=== PATIENT | female | born 1995 | race Caucasian/White ===

== ENCOUNTER 2017-08-30 20:53 | Emergency (ER) | payer BC ==
[2017-08-30 21:14] VITALS: BP 147/85
--- NOTE | 2017-08-30 22:31 | ED ---
Laceration/Wound HPI - HPI Summary HPI Summary: 22F presents with right index finger avulsion. She cut her finger on a razor. The bleeding has slowed to a trickle at this time. no numbness or tingling. is right handed. tetanus is up to date. no other injury. 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 Time Seen by Provider: 08/30/17 21:23 Pain Intensity: 3 - Allergy/Home Medications Allergies/Adverse Reactions: Allergies Allergy/AdvReac Type Severity Reaction Status Date / Time No Known Allergies Allergy Verified 08/30/17 21:14 PMH/Surg Hx/FS Hx/Imm Hx Endocrine/Hematology History: Denies: Hx Anticoagulant Therapy Cardiovascular History: Denies: Hx Hypertension - Immunization History Date of Tetanus Vaccine: last 5 years Infectious Disease History: No Infectious Disease History: Denies: Traveled Outside the [place] in Last 30 Days - Family History Known Family History: Negative: Diabetes - Social History Alcohol Use: Rare Substance Use Type: Reports: None Smoking Status (MU): Never Smoked Tobacco Review of Systems Negative: Fever Negative: Chest Pain Negative: Shortness Of Breath Positive: Other - avulsion right index finger All Other Systems Reviewed And Are Negative: Yes Physical Exam Triage Information Reviewed: Yes Vital Signs On Initial Exam: Initial Vitals Temp Pulse Resp BP Pulse Ox 98.3 F 91 18 147/85 97 08/30/17 21:11 08/30/17 21:11 08/30/17 21:11 08/30/17 21:11 08/30/17 21:11 Vital Signs Reviewed: Yes Appearance: Positive: Well-Appearing Skin: Positive: Warm, Dry, Other - 1/2cm and 1/4cm avulsion or distal tip of right index finger Head/Face: Positive: Normal Head/Face Inspection Eyes: Positive: Normal, EOMI, Conjunctiva Clear Respiratory/Lung Sounds: Positive: Clear to Auscultation, Breath Sounds Present Cardiovascular: Positive: Normal, RRR Musculoskeletal: Positive: Strength/ROM Intact - right hand, Other - capillary refill<2 secs, Neurological: Positive: Normal Psychiatric: Positive: Normal - Nora Coma Scale Coma Scale Total: 15 Diagnostics - Vital Signs Vital Signs Temp Pulse Resp BP Pulse Ox 08/30/17 21:11 98.3 F 91 18 147/85 97 - Laboratory Lab Statement: Any lab studies that have been ordered have been reviewed, and results considered in the medical decision making process. Laceration Repair Course/Dx - Course Course Of Treatment: 22F presents with right index finger avulsion. She cut her finger on a razor. The bleeding has slowed to a trickle at this time. no numbness or tingling. is right handed. tetanus is up to date. no other injury. on exam has 1/2cm by 1/4cm avulsion. cleaned area and placed xeroform, guaze, and coband to create a pressure dressing. told to change pressure dressing tomorrow. patient understand and agrees with plan. - Differential Dx Differental Diagnoses: Abrasion, Avulsion, Laceration - Clinical Impression Provider Diagnoses: right index finger avlusion Discharge - Discharge Plan Condition: Good Disposition: HOME Patient Education Materials: Skin Avulsion (ED) Referrals: [facility] - Golden LOPEZ [Primary Care Provider] - Additional Instructions: Keep area in pressure dressing for 24 hours, after 24 hours check for sign of infection and rewrap with pressure dressing for another 24 hours Keep area covered after 48 hours with bandaid until scabbed over Follow up with primary within 5 days Return to ED if develop any signs of infection such as fever, spreading redness , or pus formation or if bleed through pressure dressing or any new or worsening symptoms
== END 2017-08-30 22:38 | disposition home or self-care (01) ==
LOC: ED 20:53
DX: S61.210A Laceration without foreign body of right index finger without damage to nail, initial encounter (principal); W45.8XXA Other foreign body or object entering through skin, initial encounter; Y93.9 Activity, unspecified; Y92.9 Unspecified place or not applicable
CPT/HCPCS: 99282